=== PATIENT | male | born 1960 | race Caucasian/White ===

== ENCOUNTER 2020-08-12 09:08 | Inpatient (IN) | payer SELFPAY ==
[2020-08-12] MEDS ORDERED: ACETAMINOPHEN 325 MG TABLET PO ONE (11:11)
--- NOTE | 2020-08-12 11:19 | ER Document Report ---
ED General - General Chief Complaint: Flu Symptoms Stated Complaint: BACK PAIN/SHORTNESS OF BREATH Time Seen by Provider: 08/12/20 10:06 - HPI Notes: Chief complaint: Back pain cough History of present illness: 59-year-old male 1 pack/day cigarette smoker for many years presents now with 1 month history of progressively worsening back pain seated with 15 pound weight loss and cough productive of some sputum. He denies hemoptysis. He denies any prior history of respiratory problems. He specifically denies any known history of TB or exposure to TB that he is aware of. Has not seen a doctor in many years and is not currently taking any medications. He has no known allergies. Patient says he drinks 4 to 6 beers per day. 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 Currently lives alone. - Related Data Allergies/Adverse Reactions: No Known Allergies Allergy (Verified 08/12/20 10:51) Past Medical History - General Information source: Patient - Social History Smoking Status: Current Every Day Smoker Family History: Reviewed & Not Pertinent - Past Medical History Cardiac Medical History: Reports: Hx Hypertension Surgical Hx: Negative Review of Systems - Review of Systems Notes: Constitutional: Negative for fever. Weight loss as per HPI. HENT: Negative for sore throat. Eyes: Negative for visual changes. Cardiovascular: Negative for chest pain. Respiratory: As per HPI. Gastrointestinal: Negative for abdominal pain, vomiting or diarrhea. Genitourinary: Negative for dysuria. Musculoskeletal: As per HPI. Skin: Negative for rash. Neurological: Negative for headaches, weakness or numbness. 10 point ROS negative except as marked above and in HPI. Physical Exam - Vital signs Vitals: Temp Pulse Resp BP Pulse Ox 98.1 F 119 H 18 128/80 H 100 08/12/20 09:21 08/12/20 09:21 08/12/20 09:21 08/12/20 09:21 08/12/20 09:21 Course - Re-evaluation Re-evalutation: 08/12/20 15:12 Patient has what appears to be a dense pneumonic infiltrate versus mass on plain film of the chest. We obtained a CT of the chest with IV contrast and this suggests a necrotizing pneumonia with central cavitation. 20,000 white count present. Patient is mildly dyspneic at rest but has normal O2 saturation by pulse oximeter at this time. Blood cultures have been drawn. Patient has received IV Rocephin and azithromycin. We spoke with Dr. Dumont from pulmonary who agrees to see the patient for consultation possible bronchoscopy if patient can be admitted by the hospitalist service. Patient has been accepted for admission by hospitalist service. Findings, clinical impression and plan of treatment have been discussed with patient/family. Understanding of current findings and recommendations has been acknowledged by them and there is agreement regarding disposition and follow-up. - Vital Signs Vital signs: Temp Pulse Resp BP Pulse Ox 98.1 F 119 H 33 H 141/95 H 84 L 08/12/20 09:21 08/12/20 09:21 08/12/20 14:06 08/12/20 13:03 08/12/20 14:06 - Laboratory Result Diagrams: 08/12/20 12:42 08/12/20 12:42 Laboratory results interpreted by me: 08/12/20 08/12/20 12:42 12:42 WBC 19.9 H Plt Count 488 H Lymph % (Auto) 8.5 L Absolute Neuts (auto) 17.0 H Seg Neutrophils % 85.4 H Sodium 133.8 L Chloride 93 L BUN 21 H Albumin 3.4 L - EKG Interpretation by Me Additional EKG results interpreted by me: 08/12/20 11:17 Twelve-lead EKG reviewed by me contemporaneously: 1000 hours Indication for study: Back pain Rhythm: Normal sinus Rate: 96 Intervals: Normal QRS axis: +[address]/T wave changes: None Right atrial abnormality present Comparison with prior tracing: None Interpretation: Right atrial abnormality Discharge - Discharge Clinical Impression: Necrotizing pneumonia right upper lobe Condition: Good Disposition: ADMITTED INPATIENT Admitting Provider: Kartik (Hospitalist) Unit Admitted: Medical Floor
--- NOTE | 2020-08-12 11:57 | RADIOLOGY REPORT (SQ) ---
EXAM DESCRIPTION: CHEST SINGLE VIEW IMAGES COMPLETED DATE/TIME: 08/12/2020 11:18 am REASON FOR STUDY: Dyspnea COMPARISON: None. EXAM PARAMETERS: NUMBER OF VIEWS: One view. TECHNIQUE: Single frontal radiographic view of the chest acquired. RADIATION DOSE: NA LIMITATIONS: None. FINDINGS: LUNGS AND PLEURA: Dense consolidation in the right upper lobe. Otherwise clear. No pleur al effusion. No pneumothorax. MEDIASTINUM AND HILAR STRUCTURES: No masses. Contour normal. HEART AND VASCULAR STRUCTURES: Heart normal in size. Normal vasculature. BONES: No acute findings. Degenerative changes in the spine. HARDWARE: None in the chest. OTHER: No other significant finding. IMPRESSION: DENSE CONSOLIDATION IN THE RIGHT UPPER LOBE LIKELY DUE TO PNEUMONIA. UNDERLYING MASS CA NNOT BE EXCLUDED. TECHNICAL DOCUMENTATION: JOB ID: [id number] 2010 [employer]- All Rights Reserved Reading location - IP/workstation name: [email or web address]
[2020-08-12] MEDS ORDERED: AZITHROMYCIN 250 MG TABLET PO ONE (12:12)
[2020-08-12] MEDS ORDERED: CEFTRIAXONE INJ 1000 MG VIAL IV ONE (12:12)
--- NOTE | 2020-08-12 13:02 | EKG REPORT ---
SEVERITY:- ABNORMAL ECG - SINUS RHYTHM RAA, : Confirmed by: Chris Sullivan MD 12-Aug-2020 13:01:11
[2020-08-12 13:19] LABS: ABSOLUTE BASOPHILS # (AUTO) 0.1 10^3/uL (0.0-0.2); ABSOLUTE EOSINOPHILS # (AUTO) 0.1 10^3/uL (0.0-0.6); ABSOLUTE LYMPHOCYTES (AUTO) 1.7 10^3/uL (0.5-4.7); ABSOLUTE MONOCYTES (AUTO) 1.1 10^3/uL (0.1-1.4); BASOPHILS % (AUTO) 0.3 % (0-2); EOSINOPHILS % (AUTO) 0.4 % (0-6); HEMOGLOBIN 13.9 g/dL (13.5-17.0); LYMPHOCYTES % (AUTO) 8.5 % (13-45); MEAN CORPUSCULAR HGB CONC 34.8 g/dL (32.0-36.0); MEAN CORPUSCULAR VOLUME 92 fl (80-97); MONOCYTES % (AUTO) 5.4 % (3-13); PLATELET COUNT 488 10^3/uL (150-450); RED BLOOD COUNT 4.35 10^6/uL (4.35-5.55); SEGMENTED NEUTROPHILS % (AUTO) 85.4 % (42-78); TOTAL CELLS COUNTED % (AUTO) 100 %; WHITE BLOOD COUNT 19.9 10^3/uL (4.0-10.5)
[2020-08-12 13:44] LABS: ALBUMIN 3.4 g/dL (3.5-5.0); ALKALINE PHOSPHATASE 92 U/L (38-126); ANION GAP 13 (5-19); ASPARTATE AMINO TRANSFERASE 48 U/L (17-59); BILIRUBIN,DIRECT 0.3 mg/dL (0.0-0.4); BILIRUBIN,TOTAL 0.8 mg/dL (0.2-1.3); BLOOD UREA NITROGEN 21 mg/dL (7-20); CALCIUM 9.4 mg/dL (8.4-10.2); CARBON DIOXIDE 28 mmol/L (22-30); CHLORIDE 93 mmol/L (98-107); GLUCOSE 100 mg/dL (75-110); POTASSIUM 4.9 mmol/L (3.6-5.0); TOTAL PROTEIN 7.5 g/dL (6.3-8.2)
[2020-08-12 13:46] LABS: ALCOHOL < 10 mg/dL (NONE DETECTED)
--- NOTE | 2020-08-12 14:22 | RADIOLOGY REPORT (SQ) ---
EXAM DESCRIPTION: CT CHEST WITH IMAGES COMPLETED DATE/TIME: 08/12/2020 2:07 pm REASON FOR STUDY: Right upper lobe mass COMPARISON: AP chest 08/12/2020 TECHNIQUE: CT scan of the chest performed using helical scanning technique with dynamic intravenous contrast injection. Images reviewed with lung, soft tissue and bone windows. Reconstructed coronal and sagittal MPR and MIP images reviewed. All images stored on PACS. All CT scanners at this facility use dose modulation, iterative reconstruction, and/or weight based d osing when appropriate to reduce radiation dose to as low as reasonably achievable (ALARA). [facility]: Dose Right [facility]: CareDose [facility]: Dose Right [facility]: Teradose 4D [facility]: AccountNow CONTRAST TYPE AND DOSE: contrast/concentration: Isovue 350.00 mmol/ml; Total Contrast Delivered: 60. 0 ml; Total Saline Delivered: 55.0 ml RENAL FUNCTION: Creatinine 0.7 RADIATION DOSE: CT Rad equipment meets quality standard of care and radiation dose reduction techniq ues were employed. CTDIvol: 5.3 mGy. DLP: 219 mGy-cm. . LIMITATIONS: None. FINDINGS: LUNGS AND PLEURA: Dense consolidation is present in the right upper lobe. Central cavitat ion of the infiltrate is present, best shown on axial image 18. Necrotizing pneumonia is suspected. On axial image 40, a 10 mm irregularly-shaped pleural-based nodule is present in the right lower lobe adjacent to old healed rib fractures. HILAR AND MEDIASTINAL STRUCTURES: 1.5 x 0.9 cm precarinal lymph node. HEART AND VASCULAR STRUCTURES: No thoracic aortic aneurysm or dissection. No central pulmonary embol i. No pericardial effusion or cardiomegaly. Very dense coronary arteries, question left-sided coron jermain stents. HARDWARE: None in the chest. UPPER ABDOMEN: No significant findings. Limited exam. THYROID AND OTHER SOFT TISSUES: No masses. No adenopathy. BONES: No significant finding. OTHER: No other significant finding. IMPRESSION: Necrotizing right upper lobe pneumonia with central cavity and fluid Probable 1 cm scar in the right lower lobe adjacent to old healed rib fractures TECHNICAL DOCUMENTATION: JOB ID: [id number] Quality ID # [id number]: Final reports with documentation of one or more dose reduction techniques (e.g., Au tomated exposure control, adjustment of the mA and/or kV according to patient size, use of iterative reconstruction technique) 2010 [employer]- All Rights Reserved Reading location - IP/workstation name: [email or web address]
[2020-08-12] MEDS ORDERED: ONDANSETRON 4 MG TAB.RAPDIS PO PRN (18:33)
[2020-08-12] MEDS ORDERED: ONDANSETRON HCL INJ/PF 4 MG/2 ML SDV IV PRN (18:33)
[2020-08-12] MEDS ORDERED: LORAZEPAM INJ 2 MG/1 ML VIAL IV PRN (18:41)
--- NOTE | 2020-08-12 18:49 | PDOC H&P ---
History of Present Illness Admission Date/PCP: 08/12/20 16:28 History of Present Illness: RAFAT AMOS III is a 59 year old male with no significant past medical history who presents with a 1 week history of progressive chills right-sided chest pain shortness of breath. Patient also states he has been losing weight with approximately 15 to 20 pounds lost in the past month. Patient states is never had this sensation before. 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 He states multiple other workers were also ill from this. He is a current smoker and drinks 4-6 beers per day last drink was yesterday. He states he is never gone through withdrawal. He also smokes marijuana intermittently. He denies any fevers or productive cough. He denies any COVID-19 exposures and denies any history of tuberculosis. He denies any history of GERD or aspiration. Pulmonology was consulted on admission for possible bronchoscopy. CT scan chest showed necrotizing pneumonia in right upper lobe. Past Medical History Cardiac Medical History: Reports: Hypertension EENT Medical History: Reports: Cataracts Psychiatric Medical History: Reports: Alcohol Dependency, Substance Abuse, Tobacco Dependency Past Surgical History Past Surgical History: Reports: Other - Cataract Social History Information Source: Patient, Emergency Med Personnel Lives with: Alone Smoking Status: Current Every Day Smoker Frequency of Alcohol Use: Heavy Hx Recreational Drug Use: Yes Drugs: Marijuana Hx Prescription Drug Abuse: No - Advance Directive Resuscitation Status: Full Code Surrogate healthcare decision maker:: Admitting diagnosis: Necrotizing pneumonia All aspects of code status discussed with patient/POA including cardioversion, chest compressions, and intubation and the patient/POA indicated they wish to be full code MPOA is designated as: Dulce Pitts Time spent: Greater than 16 minutes Family History Family History: Reviewed & Not Pertinent Parental Family History Reviewed: Yes Children Family History Reviewed: Yes Sibling(s) Family History Reviewed.: Yes Medication/Allergy Home Medications: No Home Medications 08/12/20 Allergies/Adverse Reactions: No Known Allergies Allergy (Verified 08/12/20 10:51) Review of Systems All systems: reviewed and no additional remarkable complaints except as stated - Review of systems per HPI otherwise negative Physical Exam Vital Signs: Temp Pulse Resp BP Pulse Ox 99.8 F 100 17 147/102 H 98 08/12/20 18:31 08/12/20 18:31 08/12/20 18:31 08/12/20 18:31 08/12/20 18:31 Intake & Output 08/11/20 08/12/20 08/13/20 06:59 06:59 06:59 Weight 54.2 kg Exam: General appearance: PRESENT: no acute distress, thin Head exam: PRESENT: atraumatic, normocephalic Eye exam: PRESENT: conjunctiva pink. ABSENT: scleral icterus Mouth exam: PRESENT: moist Respiratory exam: PRESENT: Faint rales right upper lobe ABSENT: rhonchi, wheezes Cardiovascular exam: PRESENT: RRR. ABSENT: diastolic murmur, rubs, systolic murmur GI/Abdominal exam: PRESENT: normal bowel sounds, soft. ABSENT: distended, guarding, mass, organolmegaly, rebound, tenderness Neurological exam: PRESENT: alert, awake, oriented to person, oriented to place, oriented to time, oriented to situation Psychiatric exam: PRESENT: appropriate affect, normal mood Skin exam: PRESENT: dry, intact, warm Results Laboratory Results: 08/12/20 12:42 08/12/20 12:42 08/12/20 08/12/20 12:42 12:42 WBC 19.9 H RBC 4.35 Hgb 13.9 Hct 40.0 MCV 92 MCH 32.0 MCHC 34.8 RDW 13.0 Plt Count 488 H Seg Neutrophils % 85.4 H Sodium 133.8 L Potassium 4.9 Chloride 93 L Carbon Dioxide 28 Anion Gap 13 BUN 21 H Creatinine 0.65 Est GFR ( Amer) > 60 Glucose 100 Calcium 9.4 Total Bilirubin 0.8 AST 48 Alkaline Phosphatase 92 Total Protein 7.5 Albumin 3.4 L Impressions: Chest X-Ray 08/12/20 10:44 IMPRESSION: DENSE CONSOLIDATION IN THE RIGHT UPPER LOBE LIKELY DUE TO PNEUMONIA. UNDERLYING MASS CANNOT BE EXCLUDED. Chest CT 08/12/20 11:12 IMPRESSION: Necrotizing right upper lobe pneumonia with central cavity and fluid Probable 1 cm scar in the right lower lobe adjacent to old healed rib fractures Assessment and Plan - Diagnosis (1) Necrotizing pneumonia Is this a current diagnosis for this admission?: Yes Plan: Approximately 1 week of progressive right-sided chest pain and chills, patient believes this is due to inhaling dust when working on a roof Pulmonology consulted for possible bronchoscopy Cefepime/azithromycin for broad coverage Rule out TB: QuantiFERON gold and AFB x3 Sputum culture Blood culture Duo nebs as needed Pulmonary hygiene HIV ordered (2) Cavitary lesion of lung Is this a current diagnosis for this admission?: Yes Plan: Unclear etiology Work-up as above (3) Tobacco abuse Is this a current diagnosis for this admission?: Yes Plan: Counseled on cessation Nicotine patch (4) Alcohol abuse Is this a current diagnosis for this admission?: Yes Plan: Counseled on cessation CIWA As needed Ativan Thiamine and vitamins (5) Polysubstance abuse Is this a current diagnosis for this admission?: Yes Plan: Counseled on cessation of alcohol, marijuana, tobacco UDS - Time Time Spent with patient: 35 or more minutes Smoking Cessation Education: 3 to 10 minutes Medications reviewed and adjusted accordingly: Yes Anticipated Discharge Disposition: Home, Self Care Anticipated Discharge Timeframe: within 72 hours - Inpatient Certification Based on my medical assessment, after consideration of the patient's comorbidities, presenting symptoms, or acuity I expect that the services needed warrant INPATIENT care.: Yes I certify that my determination is in accordance with my understanding of Medicare's requirements for reasonable and necessary INPATIENT services [42 CFR 412.3e].: Yes Medical Necessity: Significant Comorbidiites Make Outpatient Treatment Too Risky, Need Close Monitoring Due to Risk of Patient Decompensation, Need for IV Antibiotics, Risk of Complication if Not Cared For in Hospital, Risk of Diag nosis Which Will Require Inpatient Eval/Care/Monitoring
[2020-08-12] MEDS: ACETAMINOPHEN 325 MG TABLET PO PRN (21:36)
[2020-08-12] MEDS ORDERED: CEFEPIME 2 GM/D5W RTU 2 GM/50 ML RTUPB IV SCH (22:00)
[2020-08-12] MEDS: HEPARIN SOD (PORCINE) 5,000 UNIT/ML 1 ML VIAL SUBCUT SCH (23:22)
[2020-08-12] MEDS: THIAMINE HCL 100 MG TABLET PO SCH (23:22)
[2020-08-12] MEDS: NICOTINE 21 MG/24 HR PATCH.TD24 TD SCH (23:22)
[2020-08-12] MEDS: CEFEPIME HCL 2 GM in DEXTROSE 5%-WATER 50 ML IV SCH (23:23)
[2020-08-13] MEDS: PANTOPRAZOLE SODIUM 40 MG TABLET.DR PO SCH (05:29)
[2020-08-13] MEDS: HEPARIN SOD (PORCINE) 5,000 UNIT/ML 1 ML VIAL SUBCUT SCH ×3 (05:29→21:03)
[2020-08-13 07:29] LABS: ABSOLUTE BASOPHILS # (AUTO) 0.1 10^3/uL (0.0-0.2); ABSOLUTE LYMPHOCYTES (AUTO) 1.2 10^3/uL (0.5-4.7); ABSOLUTE MONOCYTES (AUTO) 1.1 10^3/uL (0.1-1.4); ABSOLUTE NEUT (AUTO) 14.6 10^3/uL (1.7-8.2); BASOPHILS % (AUTO) 0.3 % (0-2); EOSINOPHILS % (AUTO) 0.2 % (0-6); HEMATOCRIT 35.5 % (37.9-51.0); HEMOGLOBIN 12.6 g/dL (13.5-17.0); LYMPHOCYTES % (AUTO) 7.2 % (13-45); MEAN CORPUSCULAR HEMOGLOBIN 32.3 pg (27.0-33.4); MEAN CORPUSCULAR HGB CONC 35.5 g/dL (32.0-36.0); MEAN CORPUSCULAR VOLUME 91 fl (80-97); MONOCYTES % (AUTO) 6.3 % (3-13); PLATELET COUNT 424 10^3/uL (150-450); RED CELL DISTRIBUTION WIDTH 12.7 % (11.5-14.0); TOTAL CELLS COUNTED % (AUTO) 100 %
[2020-08-13 07:52] LABS: ANION GAP 15 (5-19); BLOOD UREA NITROGEN 14 mg/dL (7-20); CALCIUM 8.8 mg/dL (8.4-10.2); CARBON DIOXIDE 20 mmol/L (22-30); CHLORIDE 94 mmol/L (98-107); CHOLESTEROL 97.18 mg/dL (0-200); GLUCOSE 102 mg/dL (75-110); PHOSPHORUS 3.4 mg/dL (2.5-4.5); POTASSIUM 4.2 mmol/L (3.6-5.0); TRIGLYCERIDES 156 mg/dL (<150)
[2020-08-13 08:03] LABS: DIRECT LDL 40 mg/dL (<100)
[2020-08-13 08:36] LABS: VLDL CHOLESTEROL 31.2 mg/dL (10-31)
[2020-08-13] MEDS: DOCUSATE SODIUM 100 MG CAPSULE PO SCH (09:42)
[2020-08-13] MEDS: CEFEPIME HCL 2 GM in DEXTROSE 5%-WATER 50 ML IV SCH ×2 (09:42→21:04)
[2020-08-13] MEDS: THIAMINE HCL 100 MG TABLET PO SCH (09:42)
[2020-08-13] MEDS: MULTIVITAMIN TABLET PO SCH (09:42)
[2020-08-13] MEDS: NICOTINE 21 MG/24 HR PATCH.TD24 TD SCH (09:52)
[2020-08-13] MEDS ORDERED: AZITHROMYCIN INJ 500 MG VIAL IV SCH (10:00)
--- NOTE | 2020-08-13 10:39 | PDOC CONSULTATION ---
Consultation Consult Date: 08/13/20 Provider Consulted: ELOINA LAZCANO Consult reason:: Right upper lobe abnormality on CAT scan. History of Present Illness Admission Date/PCP: 08/12/20 16:28 History of Present Illness: RAFAT AMOS III is a 59 year old male This patient presents with approximately 6-week long history of weight loss, cough, dyspnea, chills and night sweats. He states that beginning approximately 6 to 8 weeks ago he began remodeling his house. This apparently involved getting into areas of his ceiling and attic he had not previously been into in a number of years. It apparently was a fairly marcelino environment. Subsequently both him and 2 of his friends who helped him became ill with various respiratory complaints. He ultimately presented to the emergency room with the above history and was found to have an abnormal chest x-ray and subsequent CT scan of the chest as well. This patient has a significant history of cigarette smoking smoking as much as 1 to 1-1/2 packs/day. He continued to smoke 1 week prior to admission. He has been smoking for approximately 40 years. He notes exposure to a number of dusts in the past but no discrete occupational exposures. There is no significant family history of pulmonary disease. Past Medical History Cardiac Medical History: Reports: Hypertension EENT Medical History: Reports: Cataracts Psychiatric Medical History: Reports: Alcohol Dependency, Substance Abuse, Tobacco Dependency Denies: Depression Past Surgical History Past Surgical History: Reports: Other - Cataract Social History Lives with: Alone Smoking Status: Current Every Day Smoker Cigarettes Packs Per Day: 1 Cigars Per Day: 0 Pipes Per Day: 0 Number of Years Smokin Last Time Smoked: 08/07/2020 Frequency of Alcohol Use: Heavy Hx Recreational Drug Use: Yes Drugs: Marijuana Hx Prescription Drug Abuse: No - Advance Directive Resuscitation Status: Full Code Family History Family History: Reviewed & Not Pertinent Parental Family History Reviewed: No Children Family History Reviewed: No Sibling(s) Family History Reviewed.: No Medication/Allergy Home Medications: No Home Medications 08/12/20 Allergies/Adverse Reactions: No Known Allergies Allergy (Verified 08/12/20 10:51) Physical Exam Vital Signs: Temp Pulse Resp BP Pulse Ox 99.9 F 111 H 20 138/85 H 93 08/13/20 08:50 08/13/20 08:29 08/13/20 08:29 08/13/20 08:29 08/13/20 08:29 Intake & Output 08/12/20 08/13/20 08/14/20 06:59 06:59 06:59 Intake Total 660 Balance 660 Weight 54.2 kg Results Laboratory Results: 08/13/20 07:06 08/13/20 07:06 08/12/20 08/12/20 08/13/20 12:42 12:42 07:06 WBC 19.9 H RBC 4.35 Hgb 13.9 Hct 40.0 MCV 92 MCH 32.0 MCHC 34.8 RDW 13.0 Plt Count 488 H Seg Neutrophils % 85.4 H Sodium 133.8 L 128.5 L Potassium 4.9 4.2 Chloride 93 L 94 L Carbon Dioxide 28 20 L Anion Gap 13 15 BUN 21 H 14 Creatinine 0.65 0.57 Est GFR ( Amer) > 60 > 60 Glucose 100 102 Calcium 9.4 8.8 Phosphorus 3.4 Magnesium 1.9 Total Bilirubin 0.8 AST 48 Alkaline Phosphatase 92 Total Protein 7.5 Albumin 3.4 L Triglycerides 156 H Cholesterol 97.18 LDL Cholesterol Direct 40 VLDL Cholesterol 31.2 H HDL Cholesterol 21 L 08/13/20 07:06 WBC 17.0 H RBC 3.90 L Hgb 12.6 L Hct 35.5 L MCV 91 MCH 32.3 MCHC 35.5 RDW 12.7 Plt Count 424 Seg Neutrophils % 86.0 H Sodium Potassium Chloride Carbon Dioxide Anion Gap BUN Creatinine Est GFR ( Amer) Glucose Calcium Phosphorus Magnesium Total Bilirubin AST Alkaline Phosphatase Total Protein Albumin Triglycerides Cholesterol LDL Cholesterol Direct VLDL Cholesterol HDL Cholesterol Impressions: Chest X-Ray 08/12/20 10:44 IMPRESSION: DENSE CONSOLIDATION IN THE RIGHT UPPER LOBE LIKELY DUE TO PNEUMONIA. UNDERLYING MASS CANNOT BE EXCLUDED. Chest CT 08/12/20 11:12 IMPRESSION: Necrotizing right upper lobe pneumonia with central cavity and fluid Probable 1 cm scar in the right lower lobe adjacent to old healed rib fractures Status: Image reviewed by me - I reviewed his hospitalization chest x-ray and CT scan. He indeed does have a dense infiltrative/masslike lesion involving the right upper lobe. There does appear to be a small area of central cavitation. There is not appear to be any obvious air-fluid levels. Assessment & Plan - Diagnosis (1) Cavitary lesion of lung Is this a current diagnosis for this admission?: Yes - Plan Summary Plan Summary: This patient presents with a 6-week history of cough, weight loss, chills and night sweats, and an abnormal CT scan of the chest. While is entirely possible that this all represents an evolving anaerobic lung infection from an earlier pneumonia, it is certainly possible this represents a more atypical situation. In particular because of the upper lobe nature of this there is always concern about acid-fast bacilli. This could be both typical and atypical mycobacterial infection. In addition this could be nocardia actinomyces or other fungal infection. Likewise this could all likely be a large necrotizing carcinoma. Or could represent a small endobronchial tumor with postobstructive inflammation and early cavitary lung formation. However it seems likely that infection and likely bacterial infection is at least playing some role in this patient's presentation. Therefore I think it is most appropriate to proceed with a course of intravenous antibiotics to see how much of this right upper lobe infiltrative process will resolve. I have added clindamycin to his current antibiotic regimen. We can certainly continue treatment and follow-up as an outpatient once his acute illness has resolved. For now I would follow his temperature trend, his white cell count, his response to therapy, and ultimately serial chest x-rays and CT scans of the chest. We will likely proceed with bronchoscopy at some point if this dense infiltrative possibly cavitary lesion does not completely resolve over time.
[2020-08-13] MEDS: IPRATROPIUM/ALBUTEROL 0.5-2.5 MG/3 ML AMPUL NEB PRN (10:51)
[2020-08-13] MEDS: AZITHROMYCIN 500 MG in DEXTROSE 5%-WATER 250 ML IV SCH (13:27)
[2020-08-13] MEDS: ACETAMINOPHEN 325 MG TABLET PO PRN ×2 (13:27→21:04)
--- NOTE | 2020-08-13 14:02 | PDOC PROGRESS REPORT ---
Subjective Subjective:: RAFAT AMOS III is a 59 year old male with no significant past medical history who presents with a 1 week history of progressive chills right-sided chest pain shortness of breath. Patient also states he has been losing weight with approximately 15 to 20 pounds lost in the past month. Patient states is never had this sensation before. 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 He states multiple other workers were also ill from this. He is a current smoker and drinks 4-6 beers per day last drink was yesterday. He states he is never gone through withdrawal. He also smokes marijuana intermittently. He denies any fevers or productive cough. He denies any COVID-19 exposures and denies any history of tuberculosis. He denies any history of GERD or aspiration. Pulmonology was consulted on admission for possible bronchoscopy. CT scan chest showed nec rotizing pneumonia in right upper lobe. 08/13/2020 Patient seems to be improved from yesterday and voices that he feels better. I discussed the case with Dr. Wise and pulmonology today and he stated he would like the patient to take antibiotics for a few days and then reassess for bronchoscopy needs. Patient in agreement with this plan. White blood cells lower. Patient is in a negative pressure room while we rule out TB given he has a cavitary lesion on CT scan. Patient denies ever having pneumonia in the past. HIV is negative. Reason For Visit: NECROTIZING PNEUMONIA Physical Exam Vital Signs: Temp Pulse Resp BP Pulse Ox 99.9 F 97 16 138/85 H 97 08/13/20 08:50 08/13/20 10:51 08/13/20 10:51 08/13/20 08:29 08/13/20 10:51 Intake & Output 08/12/20 08/13/20 08/14/20 06:59 06:59 06:59 Intake Total 660 Balance 660 Weight 54.2 kg Exam: General appearance: PRESENT: no acute distress, thin, seems better today Head exam: PRESENT: atraumatic, normocephalic Eye exam: PRESENT: conjunctiva pink. ABSENT: scleral icterus Mouth exam: PRESENT: moist Respiratory exam: PRESENT: Scant rales right upper lobe ABSENT: rhonchi, wheezes Cardiovascular exam: PRESENT: RRR. ABSENT: diastolic murmur, rubs, systolic murmur GI/Abdominal exam: PRESENT: normal bowel sounds, soft. ABSENT: distended, guarding, mass, organolmegaly, rebound, tenderness Neurological exam: PRESENT: alert, awake, oriented to person, oriented to place, oriented to time, oriented to situation Psychiatric exam: PRESENT: appropriate affect, normal mood Skin exam: PRESENT: dry, intact, warm Results Laboratory Results: 08/13/20 07:06 08/13/20 07:06 08/13/20 08/13/20 07:06 07:06 WBC 17.0 H RBC 3.90 L Hgb 12.6 L Hct 35.5 L MCV 91 MCH 32.3 MCHC 35.5 RDW 12.7 Plt Count 424 Seg Neutrophils % 86.0 H Sodium 128.5 L Potassium 4.2 Chloride 94 L Carbon Dioxide 20 L Anion Gap 15 BUN 14 Creatinine 0.57 Est GFR ( Amer) > 60 Glucose 102 Calcium 8.8 Phosphorus 3.4 Magnesium 1.9 Triglycerides 156 H Cholesterol 97.18 LDL Cholesterol Direct 40 VLDL Cholesterol 31.2 H HDL Cholesterol 21 L Impressions: Chest X-Ray 08/12/20 10:44 IMPRESSION: DENSE CONSOLIDATION IN THE RIGHT UPPER LOBE LIKELY DUE TO PNEUMONIA. UNDERLYING MASS CANNOT BE EXCLUDED. Chest CT 08/12/20 11:12 IMPRESSION: Necrotizing right upper lobe pneumonia with central cavity and fluid Probable 1 cm scar in the right lower lobe adjacent to old healed rib fractures Assessment and Plan - Diagnosis (1) Necrotizing pneumonia Is this a current diagnosis for this admission?: Yes Plan: Approximately 1 week of progressive right-sided chest pain and chills, patient believes this is due to inhaling dust when working on a roof Pulmonology consulted: Discussed with Dr. Wise, after being given a few days of antibiotics, can reassess for possible bronchoscopy Cefepime/azithromycin for broad coverage Rule out TB: QuantiFERON gold and AFB x3 Sputum culture Blood culture Duo nebs as needed Pulmonary hygiene HIV negative (2) Cavitary lesion of lung Is this a current diagnosis for this admission?: Yes Plan: Unclear etiology Work-up as above (3) Tobacco abuse Is this a current diagnosis for this admission?: Yes (4) Alcohol abuse Is this a current diagnosis for this admission?: Yes Plan: Counseled on cessation CIWA As needed Ativan Thiamine and vitamins (5) Polysubstance abuse Is this a current diagnosis for this admission?: Yes - Time Time Spent with patient: 25-34 minutes Medications reviewed and adjusted accordingly: Yes Anticipated Discharge Disposition: Home, Self Care Anticipated Discharge Timeframe: within 72 hours - Inpatient Certification Based on my medical assessment, after consideration of the patient's comorbidities, presenting symptoms, or acuity I expect that the services needed warrant INPATIENT care.: Yes I certify that my determination is in accordance with my understanding of Medicare's requirements for reasonable and necessary INPATIENT services [42 CFR 412.3e].: Yes Medical Necessity: Significant Comorbidiites Make Outpatient Treatment Too Risky, Need Close Monitoring Due to Risk of Patient Decompensation, Need for IV Antibiotics, Risk of Complication if Not Cared For in Hospital, Risk of Diagnosis Which Will Require Inpatient Eval/Care/Monitoring
[2020-08-13] MEDS: CLINDAMYCIN 600 MG/D5W RTU 600 MG/50 ML RTUPB IV SCH ×2 (16:07→21:04)
--- NOTE | 2020-08-14 00:13 | CDI QUERY ---
CDI Query CDI Review: We are seeking further clarification of documentation to reflect the severity of illness of your patient. Per H&P: Alcohol abuse Is this a current diagnosis for this admission?: Yes Plan: Counseled on cessation CIWA As needed Ativan Thiamine and vitamins Polysubstance abuse Is this a current diagnosis for this admission?: Yes Based on your medical judgement, can you further clarify in the Progress Notes: Alcohol abuse with dependence Alcohol abuse without dependence Unable to determine Other Polysubstance abuse with dependence Polysubstance without dependence Unable to determine Other Thank you for your consideration. MARK Ardon RN Clinical Binder Cutter Physician Advisor [email or web address]
[2020-08-14] MEDS: PANTOPRAZOLE SODIUM 40 MG TABLET.DR PO SCH (06:17)
[2020-08-14] MEDS: CLINDAMYCIN 600 MG/D5W RTU 600 MG/50 ML RTUPB IV SCH ×3 (06:18→22:36)
[2020-08-14] MEDS: HEPARIN SOD (PORCINE) 5,000 UNIT/ML 1 ML VIAL SUBCUT SCH ×3 (06:18→22:37)
[2020-08-14] MEDS: ACETAMINOPHEN 325 MG TABLET PO PRN ×3 (06:23→22:38)
[2020-08-14 06:26] LABS: ABSOLUTE BASOPHILS # (AUTO) 0.1 10^3/uL (0.0-0.2); ABSOLUTE EOSINOPHILS # (AUTO) 0.1 10^3/uL (0.0-0.6); ABSOLUTE LYMPHOCYTES (AUTO) 1.5 10^3/uL (0.5-4.7); ABSOLUTE MONOCYTES (AUTO) 0.9 10^3/uL (0.1-1.4); ABSOLUTE NEUT (AUTO) 12.6 10^3/uL (1.7-8.2); BASOPHILS % (AUTO) 0.3 % (0-2); EOSINOPHILS % (AUTO) 0.7 % (0-6); HEMATOCRIT 35.1 % (37.9-51.0); HEMOGLOBIN 12.3 g/dL (13.5-17.0); LYMPHOCYTES % (AUTO) 9.9 % (13-45); MEAN CORPUSCULAR HEMOGLOBIN 31.9 pg (27.0-33.4); MEAN CORPUSCULAR VOLUME 91 fl (80-97); MONOCYTES % (AUTO) 5.9 % (3-13); PLATELET COUNT 423 10^3/uL (150-450); RED BLOOD COUNT 3.85 10^6/uL (4.35-5.55); RED CELL DISTRIBUTION WIDTH 12.6 % (11.5-14.0); SEGMENTED NEUTROPHILS % (AUTO) 83.2 % (42-78); TOTAL CELLS COUNTED % (AUTO) 100 %; WHITE BLOOD COUNT 15.1 10^3/uL (4.0-10.5)
[2020-08-14 06:50] LABS: ANION GAP 12 (5-19); BLOOD UREA NITROGEN 14 mg/dL (7-20); CALCIUM 8.8 mg/dL (8.4-10.2); CARBON DIOXIDE 22 mmol/L (22-30); CHLORIDE 95 mmol/L (98-107); GLUCOSE 92 mg/dL (75-110); POTASSIUM 4.5 mmol/L (3.6-5.0)
[2020-08-14] MEDS: NICOTINE 21 MG/24 HR PATCH.TD24 TD SCH (09:30)
[2020-08-14] MEDS: MULTIVITAMIN TABLET PO SCH (09:51)
[2020-08-14] MEDS: THIAMINE HCL 100 MG TABLET PO SCH (09:51)
[2020-08-14] MEDS: CEFEPIME HCL 2 GM in DEXTROSE 5%-WATER 50 ML IV SCH ×2 (09:51→22:36)
[2020-08-14] MEDS: DOCUSATE SODIUM 100 MG CAPSULE PO SCH (09:51)
[2020-08-14] MEDS: IPRATROPIUM/ALBUTEROL 0.5-2.5 MG/3 ML AMPUL NEB PRN (10:02)
[2020-08-14] MEDS: AZITHROMYCIN 500 MG in DEXTROSE 5%-WATER 250 ML IV SCH (10:19)
--- NOTE | 2020-08-14 18:51 | PDOC PROGRESS REPORT ---
Subjective Subjective:: RAFAT AMOS III is a 59 year old male with no significant past medical history who presents with a 1 week history of progressive chills right-sided chest pain shortness of breath. Patient also states he has been losing weight with approximately 15 to 20 pounds lost in the past month. Patient states is never had this sensation before. 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 He states multiple other workers were also ill from this. He is a current smoker and drinks 4-6 beers per day last drink was yesterday. He states he is never gone through withdrawal. He also smokes marijuana intermittently. He denies any fevers or productive cough. He denies any COVID-19 exposures and denies any history of tuberculosis. He denies any history of GERD or aspiration. Pulmonology was consulted on admission for possible bronchoscopy. CT scan chest showed nec rotizing pneumonia in right upper lobe. 08/13/2020 Patient seems to be improved from yesterday and voices that he feels better. I discussed the case with Dr. Wise and pulmonology today and he stated he would like the patient to take antibiotics for a few days and then reassess for bronchoscopy needs. Patient in agreement with this plan. White blood cells lower. Patient is in a negative pressure room while we rule out TB given he has a cavitary lesion on CT scan. Patient denies ever having pneumonia in the past. HIV is negative. 08/14/2020 Patient seems to be doing better today than yesterday. His lungs are clearing up on exam. He is not seem to be experiencing significant withdrawal symptoms. He has been quinacrine gold are pending. Respiratory culture showing GPC in pairs on Gram stain. Pulmonology following. Patient has no new complaints. Reason For Visit: NECROTIZING PNEUMONIA Physical Exam Vital Signs: Temp Pulse Resp BP Pulse Ox 98.2 F 85 18 118/75 97 08/14/20 17:21 08/14/20 17:21 08/14/20 17:21 08/14/20 17:21 08/14/20 17:21 Intake & Output 08/13/20 08/14/20 08/15/20 06:59 06:59 06:59 Intake Total 660 1190 590 Output Total 335 Balance 660 855 590 Weight 54.2 kg 51.7 kg 51.7 kg Exam: General appearance: PRESENT: no acute distress, thin, states he feels well Head exam: PRESENT: atraumatic, normocephalic Eye exam: PRESENT: conjunctiva pink. ABSENT: scleral icterus Mouth exam: PRESENT: moist Respiratory exam: PRESENT: Scant rales right upper lobe ABSENT: rhonchi, wheezes Cardiovascular exam: PRESENT: RRR. ABSENT: diastolic murmur, rubs, systolic murmur GI/Abdominal exam: PRESENT: normal bowel sounds, soft. ABSENT: distended, guarding, mass, organolmegaly, rebound, tenderness Neurological exam: PRESENT: alert, awake, oriented to person, oriented to place, oriented to time, oriented to situation Psychiatric exam: PRESENT: appropriate affect, normal mood Skin exam: PRESENT: dry, intact, warm Results Laboratory Results: 08/14/20 05:56 08/14/20 05:56 08/14/20 08/14/20 05:56 05:56 WBC 15.1 H RBC 3.85 L Hgb 12.3 L Hct 35.1 L MCV 91 MCH 31.9 MCHC 35.0 RDW 12.6 Plt Count 423 Seg Neutrophils % 83.2 H Sodium 129.1 L Potassium 4.5 Chloride 95 L Carbon Dioxide 22 Anion Gap 12 BUN 14 Creatinine 0.55 Est GFR ( Amer) > 60 Glucose 92 Calcium 8.8 Impressions: Chest X-Ray 08/12/20 10:44 IMPRESSION: DENSE CONSOLIDATION IN THE RIGHT UPPER LOBE LIKELY DUE TO PNEUMONIA. UNDERLYING MASS CANNOT BE EXCLUDED. Chest CT 08/12/20 11:12 IMPRESSION: Necrotizing right upper lobe pneumonia with central cavity and fluid Probable 1 cm scar in the right lower lobe adjacent to old healed rib fractures Assessment and Plan - Diagnosis (1) Necrotizing pneumonia Is this a current diagnosis for this admission?: Yes Plan: Approximately 1 week of progressive right-sided chest pain and chills, patient believes this is due to inhaling dust when working on a roof Pulmonology consulted: Discussed with Dr. Wise, after being given a few days of antibiotics, can reassess for possible bronchoscopy Cefepime/azithromycin for broad coverage Rule out TB: QuantiFERON gold and AFB x3 Sputum culture pending, Gram stain growing GPC in pairs Blood culture Duo nebs as needed Pulmonary hygiene HIV negative (2) Cavitary lesion of lung Is this a current diagnosis for this admission?: Yes Plan: Unclear etiology Work-up as above (3) Tobacco abuse Is this a current diagnosis for this admission?: Yes (4) Alcohol abuse Is this a current diagnosis for this admission?: Yes Plan: Counseled on cessation CIWA As needed Ativan Thiamine and vitamins (5) Polysubstance abuse Is this a current diagnosis for this admission?: Yes (6) Alcohol dependence Qualifiers: Substance use status: in withdrawal Complication of substance-induced condition: uncomplicated Qualified Code(s): F10.230 - Alcohol dependence with withdrawal, uncomplicated Is this a current diagnosis for this admission?: Yes Plan: CIWA - Time Time Spent with patient: 25-34 minutes Medications reviewed and adjusted accordingly: Yes Anticipated Discharge Disposition: Home, Self Care Anticipated Discharge Timeframe: within 72 hours - Inpatient Certification Based on my medical assessment, after consideration of the patient's comorbidities, presenting symptoms, or acuity I expect that the services needed warrant INPATIENT care.: Yes I certify that my determination is in accordance with my understanding of Medicare's requirements for reasonable and necessary INPATIENT services [42 CFR 412.3e].: Yes Medical Necessity: Significant Comorbidiites Make Outpatient Treatment Too Risky, Need Close Monitoring Due to Risk of Patient Decompensation, Need for IV Antibiotics, Risk of Complication if Not Cared For in Hospital, Risk of Diagnosis Which Will Require Inpatient Eval/Care/Monitoring
[2020-08-15] MEDS: CLINDAMYCIN 600 MG/D5W RTU 600 MG/50 ML RTUPB IV SCH ×2 (06:09→14:21)
[2020-08-15] MEDS: PANTOPRAZOLE SODIUM 40 MG TABLET.DR PO SCH (06:09)
[2020-08-15] MEDS: HEPARIN SOD (PORCINE) 5,000 UNIT/ML 1 ML VIAL SUBCUT SCH ×3 (06:09→21:40)
[2020-08-15] MEDS: ACETAMINOPHEN 325 MG TABLET PO PRN ×2 (06:16→18:35)
[2020-08-15 06:51] LABS: ABSOLUTE BASOPHILS # (AUTO) 0.1 10^3/uL (0.0-0.2); ABSOLUTE EOSINOPHILS # (AUTO) 0.2 10^3/uL (0.0-0.6); ABSOLUTE LYMPHOCYTES (AUTO) 1.8 10^3/uL (0.5-4.7); ABSOLUTE MONOCYTES (AUTO) 0.9 10^3/uL (0.1-1.4); BASOPHILS % (AUTO) 0.7 % (0-2); HEMATOCRIT 36.2 % (37.9-51.0); HEMOGLOBIN 12.5 g/dL (13.5-17.0); LYMPHOCYTES % (AUTO) 14.8 % (13-45); MEAN CORPUSCULAR HEMOGLOBIN 31.6 pg (27.0-33.4); MEAN CORPUSCULAR HGB CONC 34.6 g/dL (32.0-36.0); MEAN CORPUSCULAR VOLUME 91 fl (80-97); MONOCYTES % (AUTO) 7.3 % (3-13); PLATELET COUNT 465 10^3/uL (150-450); RED BLOOD COUNT 3.97 10^6/uL (4.35-5.55); RED CELL DISTRIBUTION WIDTH 12.8 % (11.5-14.0); SEGMENTED NEUTROPHILS % (AUTO) 75.2 % (42-78); TOTAL CELLS COUNTED % (AUTO) 100 %
[2020-08-15 07:22] LABS: ANION GAP 12 (5-19); BLOOD UREA NITROGEN 13 mg/dL (7-20); CALCIUM 8.9 mg/dL (8.4-10.2); CARBON DIOXIDE 24 mmol/L (22-30); CHLORIDE 97 mmol/L (98-107); GLUCOSE 93 mg/dL (75-110); POTASSIUM 4.4 mmol/L (3.6-5.0)
[2020-08-15] MEDS: DOCUSATE SODIUM 100 MG CAPSULE PO SCH (09:33)
[2020-08-15] MEDS: NICOTINE 21 MG/24 HR PATCH.TD24 TD SCH (09:33)
[2020-08-15] MEDS: THIAMINE HCL 100 MG TABLET PO SCH (10:17)
[2020-08-15] MEDS: MULTIVITAMIN TABLET PO SCH (10:17)
[2020-08-15] MEDS: CEFEPIME HCL 2 GM in DEXTROSE 5%-WATER 50 ML IV SCH ×2 (10:17→21:40)
[2020-08-15] MEDS: AZITHROMYCIN 500 MG in DEXTROSE 5%-WATER 250 ML IV SCH (11:11)
--- NOTE | 2020-08-15 14:54 | PDOC PROGRESS REPORT ---
Subjective Progress Note for:: 08/15/20 Subjective:: No adverse events overnight. No new complaints. Vital signs been stable. He is ambulating in the room independently. He is on room air. Eating and drinking without difficulty. Reason For Visit: NECROTIZING PNEUMONIA Physical Exam Vital Signs: Temp Pulse Resp BP Pulse Ox 98.1 F 95 17 119/85 99 08/15/20 11:56 08/15/20 11:56 08/15/20 11:56 08/15/20 11:56 08/15/20 11:56 Intake & Output 08/14/20 08/15/20 08/16/20 06:59 06:59 06:59 Intake Total 1190 1280 300 Output Total 335 Balance 855 1280 300 Weight 51.7 kg 51.6 kg General appearance: PRESENT: no acute distress, thin, states he feels well Head exam: PRESENT: atraumatic, normocephalic Eye exam: PRESENT: conjunctiva pink. ABSENT: scleral icterus Mouth exam: PRESENT: moist Respiratory exam: PRESENT: Scant rales right upper lobe ABSENT: rhonchi, wheezes Cardiovascular exam: PRESENT: RRR. ABSENT: diastolic murmur, rubs, systolic murmur GI/Abdominal exam: PRESENT: normal bowel sounds, soft. ABSENT: distended, guarding, mass, organolmegaly, rebound, tenderness Neurological exam: PRESENT: alert, awake, oriented to person, oriented to place, oriented to time, oriented to situation Psychiatric exam: PRESENT: appropriate affect, normal mood Skin exam: PRESENT: dry, intact, warm Results Laboratory Results: 08/15/20 06:34 08/15/20 06:34 08/15/20 08/15/20 06:34 06:34 WBC 12.0 H RBC 3.97 L Hgb 12.5 L Hct 36.2 L MCV 91 MCH 31.6 MCHC 34.6 RDW 12.8 Plt Count 465 H Seg Neutrophils % 75.2 Sodium 132.8 L Potassium 4.4 Chloride 97 L Carbon Dioxide 24 Anion Gap 12 BUN 13 Creatinine 0.51 L Est GFR ( Amer) > 60 Glucose 93 Calcium 8.9 08/13/20 09:50 Sputum Gram Stain - Final Impressions: Chest X-Ray 08/12/20 10:44 IMPRESSION: DENSE CONSOLIDATION IN THE RIGHT UPPER LOBE LIKELY DUE TO PNEUMONIA. UNDERLYING MASS CANNOT BE EXCLUDED. Chest CT 08/12/20 11:12 IMPRESSION: Necrotizing right upper lobe pneumonia with central cavity and fluid Probable 1 cm scar in the right lower lobe adjacent to old healed rib fractures Assessment and Plan - Diagnosis (1) Necrotizing pneumonia Is this a current diagnosis for this admission?: Yes (2) Cavitary lesion of lung Is this a current diagnosis for this admission?: Yes (3) Alcohol dependence Qualifiers: Substance use status: in withdrawal Complication of substance-induced condition: uncomplicated Qualified Code(s): F10.230 - Alcohol dependence with withdrawal, uncomplicated Is this a current diagnosis for this admission?: Yes (4) Polysubstance abuse Is this a current diagnosis for this admission?: Yes (5) Tobacco abuse Is this a current diagnosis for this admission?: Yes - Plan Summary Summary: Seems to be responding to antibiotics. White blood cell count is coming down. Clinically he appears pretty well. First AFB smear was negative. The other 2 are pending. QuantiFERON gold pending. We will continue current antibiotic therapy. If he is ruled out for TB, will repeat CT scan to compare with the initial study and assess for interval change. If it has improved, will arrange outpatient follow-up with pulmonology. If it has shown no change, will follow- up with pulmonology to see if he needs further inpatient evaluation. He shows no signs of alcohol withdrawal at this time. - Time Time Spent with patient: 15-24 minutes Anticipated Discharge Disposition: Home, Self Care Anticipated Discharge Timeframe: within 72 hours
[2020-08-15] MEDS: CLINDAMYCIN HCL 150 MG CAPSULE PO SCH (21:41)
[2020-08-16] MEDS: HEPARIN SOD (PORCINE) 5,000 UNIT/ML 1 ML VIAL SUBCUT SCH ×3 (05:02→21:36)
[2020-08-16] MEDS: ACETAMINOPHEN 325 MG TABLET PO PRN ×3 (05:02→22:44)
[2020-08-16] MEDS: PANTOPRAZOLE SODIUM 40 MG TABLET.DR PO SCH (05:02)
[2020-08-16] MEDS: CLINDAMYCIN HCL 150 MG CAPSULE PO SCH ×3 (05:02→21:36)
[2020-08-16 06:21] LABS: ABSOLUTE BASOPHILS # (AUTO) 0.2 10^3/uL (0.0-0.2); ABSOLUTE EOSINOPHILS # (AUTO) 0.5 10^3/uL (0.0-0.6); ABSOLUTE LYMPHOCYTES (AUTO) 1.6 10^3/uL (0.5-4.7); ABSOLUTE MONOCYTES (AUTO) 0.9 10^3/uL (0.1-1.4); ABSOLUTE NEUT (AUTO) 9.8 10^3/uL (1.7-8.2); BASOPHILS % (AUTO) 1.2 % (0-2); EOSINOPHILS % (AUTO) 3.7 % (0-6); HEMOGLOBIN 11.4 g/dL (13.5-17.0); LYMPHOCYTES % (AUTO) 12.7 % (13-45); MEAN CORPUSCULAR HEMOGLOBIN 31.6 pg (27.0-33.4); MEAN CORPUSCULAR HGB CONC 34.5 g/dL (32.0-36.0); MEAN CORPUSCULAR VOLUME 92 fl (80-97); PLATELET COUNT 491 10^3/uL (150-450); RED BLOOD COUNT 3.61 10^6/uL (4.35-5.55); RED CELL DISTRIBUTION WIDTH 12.6 % (11.5-14.0); SEGMENTED NEUTROPHILS % (AUTO) 75.4 % (42-78); TOTAL CELLS COUNTED % (AUTO) 100 %
[2020-08-16 06:40] LABS: ANION GAP 8 (5-19); BLOOD UREA NITROGEN 13 mg/dL (7-20); CALCIUM 8.6 mg/dL (8.4-10.2); CARBON DIOXIDE 24 mmol/L (22-30); CHLORIDE 98 mmol/L (98-107); GLUCOSE 94 mg/dL (75-110); POTASSIUM 4.2 mmol/L (3.6-5.0)
[2020-08-16] MEDS: DOCUSATE SODIUM 100 MG CAPSULE PO SCH (11:17)
[2020-08-16] MEDS: THIAMINE HCL 100 MG TABLET PO SCH (11:18)
[2020-08-16] MEDS: CEFEPIME HCL 2 GM in DEXTROSE 5%-WATER 50 ML IV SCH ×2 (11:18→21:36)
[2020-08-16] MEDS: AZITHROMYCIN 250 MG TABLET PO SCH (11:18)
[2020-08-16] MEDS: MULTIVITAMIN TABLET PO SCH (11:18)
[2020-08-16] MEDS: NICOTINE 21 MG/24 HR PATCH.TD24 TD SCH (11:19)
--- NOTE | 2020-08-16 12:23 | PDOC PROGRESS REPORT ---
Subjective Progress Note for:: 08/16/20 Subjective:: No adverse events overnight. No new complaints. Vital signs been stable. He is ambulating in the room independently. He is on room air. Eating and drinking without difficulty. He says he feels pretty good. Reason For Visit: NECROTIZING PNEUMONIA Physical Exam Vital Signs: Temp Pulse Resp BP Pulse Ox 97.7 F 63 18 128/74 H 100 08/16/20 11:26 08/16/20 11:26 08/16/20 11:26 08/16/20 11:26 08/16/20 11:26 Intake & Output 08/15/20 08/16/20 08/17/20 06:59 06:59 05:59 Intake Total 1280 1070 Output Total 500 Balance 1280 570 Weight 51.6 kg 52 kg General appearance: PRESENT: no acute distress, thin, states he feels well Head exam: PRESENT: atraumatic, normocephalic Eye exam: PRESENT: conjunctiva pink. ABSENT: scleral icterus Mouth exam: PRESENT: moist Respiratory exam: PRESENT: Scant rales right upper lobe ABSENT: rhonchi, wheezes Cardiovascular exam: PRESENT: RRR. ABSENT: diastolic murmur, rubs, systolic murmur GI/Abdominal exam: PRESENT: normal bowel sounds, soft. ABSENT: distended, guarding, mass, organolmegaly, rebound, tenderness Neurological exam: PRESENT: alert, awake, oriented to person, oriented to place, oriented to time, oriented to situation Psychiatric exam: PRESENT: appropriate affect, normal mood Skin exam: PRESENT: dry, intact, warm Results Laboratory Results: 08/16/20 06:06 08/16/20 06:06 08/16/20 08/16/20 06:06 06:06 WBC 13.0 H RBC 3.61 L Hgb 11.4 L Hct 33.0 L MCV 92 MCH 31.6 MCHC 34.5 RDW 12.6 Plt Count 491 H Seg Neutrophils % 75.4 Sodium 129.7 L Potassium 4.2 Chloride 98 Carbon Dioxide 24 Anion Gap 8 BUN 13 Creatinine 0.49 L Est GFR ( Amer) > 60 Glucose 94 Calcium 8.6 08/13/20 09:50 Sputum AFB Smear Concentration - Final 08/13/20 09:50 Sputum Acid Fast Bacilli Smear - Final 08/13/20 09:50 Sputum Gram Stain - Final 08/13/20 09:50 Sputum Sputum Culture - Final Group F Beta Streptococcus Normal Gracie Impressions: Chest X-Ray 08/12/20 10:44 IMPRESSION: DENSE CONSOLIDATION IN THE RIGHT UPPER LOBE LIKELY DUE TO PNEUMONI A. UNDERLYING MASS CANNOT BE EXCLUDED. Chest CT 08/12/20 11:12 IMPRESSION: Necrotizing right upper lobe pneumonia with central cavity and fluid Probable 1 cm scar in the right lower lobe adjacent to old healed rib fractures Assessment and Plan - Diagnosis (1) Necrotizing pneumonia Is this a current diagnosis for this admission?: Yes (2) Cavitary lesion of lung Is this a current diagnosis for this admission?: Yes (3) Alcohol dependence Qualifiers: Substance use status: in withdrawal Complication of substance-induced condition: uncomplicated Qualified Code(s): F10.230 - Alcohol dependence with withdrawal, uncomplicated Is this a current diagnosis for this admission?: Yes (4) Polysubstance abuse Is this a current diagnosis for this admission?: Yes (5) Tobacco abuse Is this a current diagnosis for this admission?: Yes - Plan Summary Summary: Seems to be responding to antibiotics. White blood cell count is coming down. Clinically he appears pretty well. First AFB smear was negative. The other 2 are pending, the one collected on the has not resulted for some reason. QuantiFERON gold pending. We will continue current antibiotic therapy. If he is ruled out for TB, will repeat CT scan to compare with the initial study and assess for interval change. If it has improved, will arrange outpatient follow- up with pulmonology. If it has shown no change, will follow-up with pulmonology to see if he needs further inpatient evaluation. He shows no signs of alcohol withdrawal at this time. - Time Time Spent with patient: 15-24 minutes Anticipated Discharge Disposition: Home, Self Care Anticipated Discharge Timeframe: within 72 hours
[2020-08-17] MEDS: PANTOPRAZOLE SODIUM 40 MG TABLET.DR PO SCH (05:51)
[2020-08-17] MEDS: CLINDAMYCIN HCL 150 MG CAPSULE PO SCH ×3 (05:52→21:04)
[2020-08-17] MEDS: HEPARIN SOD (PORCINE) 5,000 UNIT/ML 1 ML VIAL SUBCUT SCH ×3 (05:52→21:04)
[2020-08-17] MEDS: ACETAMINOPHEN 325 MG TABLET PO PRN ×3 (05:55→20:13)
[2020-08-17] MEDS: DOCUSATE SODIUM 100 MG CAPSULE PO SCH (11:10)
[2020-08-17] MEDS: NICOTINE 21 MG/24 HR PATCH.TD24 TD SCH (11:10)
[2020-08-17] MEDS: AZITHROMYCIN 250 MG TABLET PO SCH (11:11)
[2020-08-17] MEDS: MULTIVITAMIN TABLET PO SCH (11:11)
[2020-08-17] MEDS: THIAMINE HCL 100 MG TABLET PO SCH (11:11)
[2020-08-17] MEDS: CEFEPIME HCL 2 GM in DEXTROSE 5%-WATER 50 ML IV SCH ×2 (11:12→21:04)
--- NOTE | 2020-08-17 15:54 | PDOC PROGRESS REPORT ---
Subjective Progress Note for:: 08/17/20 Subjective:: No adverse events overnight. No new complaints. Vital signs been stable. He is ambulating in the room independently. He is on room air. Eating and drinking without difficulty. He says he feels pretty good. Clinical condition is unchanged. Reason For Visit: NECROTIZING PNEUMONIA Physical Exam Vital Signs: Temp Pulse Resp BP Pulse Ox 97.5 F 73 16 116/73 99 08/17/20 11:50 08/17/20 14:00 08/17/20 11:50 08/17/20 11:50 08/17/20 11:50 Intake & Output 08/16/20 08/17/20 08/18/20 07:59 06:59 06:59 Intake Total Output Total Balance Weight General appearance: PRESENT: no acute distress, thin, states he feels well Head exam: PRESENT: atraumatic, normocephalic Eye exam: PRESENT: conjunctiva pink. ABSENT: scleral icterus Mouth exam: PRESENT: moist Respiratory exam: PRESENT: Scant rales right upper lobe ABSENT: rhonchi, wheezes Cardiovascular exam: PRESENT: RRR. ABSENT: diastolic murmur, rubs, systolic murmur GI/Abdominal exam: PRESENT: normal bowel sounds, soft. ABSENT: distended, guarding, mass, organolmegaly, rebound, tenderness Neurological exam: PRESENT: alert, awake, oriented to person, oriented to place, oriented to time, oriented to situation Psychiatric exam: PRESENT: appropriate affect, normal mood Skin exam: PRESENT: dry, intact, warm Results Laboratory Results: 08/16/20 06:06 08/16/20 06:06 08/12/20 15:09 Blood Blood Culture - Final NO GROWTH IN 5 DAYS 08/12/20 12:42 Blood Blood Culture - Final NO GROWTH IN 5 DAYS Impressions: Chest X-Ray 08/12/20 10:44 IMPRESSION: DENSE CONSOLIDATION IN THE RIGHT UPPER LOBE LIKELY DUE TO PNEUMONIA. UNDERLYING MASS CANNOT BE EXCLUDED. Chest CT 08/12/20 11:12 IMPRESSION: Necrotizing right upper lobe pneumonia with central cavity and fluid Probable 1 cm scar in the right lower lobe adjacent to old healed rib fractures Assessment and Plan - Diagnosis (1) Necrotizing pneumonia Is this a current diagnosis for this admission?: Yes (2) Cavitary lesion of lung Is this a current diagnosis for this admission?: Yes (3) Alcohol dependence Qualifiers: Substance use status: in withdrawal Complication of substance-induced condition: uncomplicated Qualified Code(s): F10.230 - Alcohol dependence with withdrawal, uncomplicated Is this a current diagnosis for this admission?: Yes (4) Polysubstance abuse Is this a current diagnosis for this admission?: Yes (5) Tobacco abuse Is this a current diagnosis for this admission?: Yes - Plan Summary Summary: Clinically he appears pretty well. First AFB smear was negative. The other 2 are pending, the one collected on the has not resulted for some reason. QuantiFERON gold pending. We will continue current antibiotic therapy. If he is ruled out for TB, will repeat CT scan to compare with the initial study and assess for interval change. If it has improved, will arrange outpatient follow- up with pulmonology. If it has shown no change, will follow-up with pulmonology to see if he needs further inpatient evaluation. He shows no signs of alcohol withdrawal at this time. - Time Anticipated Discharge Disposition: Home, Self Care Anticipated Discharge Timeframe: within 72 hours
[2020-08-18] MEDS: PANTOPRAZOLE SODIUM 40 MG TABLET.DR PO SCH (05:31)
[2020-08-18] MEDS: CLINDAMYCIN HCL 150 MG CAPSULE PO SCH (05:31)
[2020-08-18] MEDS: HEPARIN SOD (PORCINE) 5,000 UNIT/ML 1 ML VIAL SUBCUT SCH (05:31)
[2020-08-18] MEDS: DOCUSATE SODIUM 100 MG CAPSULE PO SCH (09:07)
[2020-08-18] MEDS: NICOTINE 21 MG/24 HR PATCH.TD24 TD SCH (09:07)
[2020-08-18] MEDS: CEFEPIME HCL 2 GM in DEXTROSE 5%-WATER 50 ML IV SCH (09:13)
[2020-08-18] MEDS: THIAMINE HCL 100 MG TABLET PO SCH (09:13)
[2020-08-18] MEDS: MULTIVITAMIN TABLET PO SCH (09:13)
[2020-08-18] MEDS: AZITHROMYCIN 250 MG TABLET PO SCH (09:57)
--- NOTE | 2020-08-18 13:42 | RADIOLOGY REPORT (SQ) ---
EXAM DESCRIPTION: CT CHEST WITH IMAGES COMPLETED DATE/TIME: 08/18/2020 11:55 am REASON FOR STUDY: pneumonia COMPARISON: 08/12/2020 TECHNIQUE: CT scan of the chest performed using helical scanning technique with dynamic intravenous contrast injection. Images reviewed with lung, soft tissue and bone windows. Reconstructed coronal and sagittal MPR and MIP images reviewed. All images stored on PACS. All CT scanners at this facility use dose modulation, iterative reconstruction, and/or weight based d osing when appropriate to reduce radiation dose to as low as reasonably achievable (ALARA). [facility]: Dose Right [facility]: CareDose [facility]: Dose Right [facility]: Teradose 4D [facility]: Sportody CONTRAST TYPE AND DOSE: contrast/concentration: Isovue 350.00 mmol/ml; Total Contrast Delivered: 79. 9 ml; Total Saline Delivered: 35.9 ml RENAL FUNCTION: Creatinine 0.49 RADIATION DOSE: CT Rad equipment meets quality standard of care and radiation dose reduction techniq ues were employed. CTDIvol: 5.1 mGy. DLP: 212 mGy-cm. . LIMITATIONS: None. FINDINGS: LUNGS AND PLEURA: Persistent dense consolidation within the right upper lobe with areas of central cavitation, grossly stable compared to prior. Patchy additional areas of ground-glass atten uation throughout the right upper lobe, likely postobstructive atelectatic change or additional pneum onia. Unchanged 1 cm scar within the peripheral right lower lobe (series 4, image 38). No significa nt pleural effusion. No pneumothorax. HILAR AND MEDIASTINAL STRUCTURES: Similar appearance of the right suprahilar and paratracheal adenopa thy. For reference, largest pretracheal node measures approximately 15 x 11 mm (series 3, image 23). HEART AND VASCULAR STRUCTURES: Scattered coronary atherosclerosis. No aneurysm or dissection. No ce ntral pulmonary emboli. No pericardial effusion. HARDWARE: None in the chest. UPPER ABDOMEN: No significant findings. Limited exam. THYROID AND OTHER SOFT TISSUES: No masses. No adenopathy. BONES: No significant finding. OTHER: No other significant finding. IMPRESSION: 1. Grossly stable appearance of the right upper lobe cavitary consolidation suggestive of cavitary pneumonia. Recommend follow-up to resolution to ensure no underlying mass lesion. Stabl e pretracheal adenopathy. 2. Mild new right upper lobe ground-glass opacities, likely additional postobstructive atelectasis/p neumonia. TECHNICAL DOCUMENTATION: JOB ID: [id number] Quality ID # [id number]: Final reports with documentation of one or more dose reduction techniques (e.g., Au tomated exposure control, adjustment of the mA and/or kV according to patient size, use of iterative reconstruction technique) 2010 [employer]- All Rights Reserved Reading location - IP/workstation name: [facility]
[2020-08-18 15:39] VITALS: BP 132/77
--- NOTE | 2020-08-18 15:42 | PDOC DISCHARGE SUMMARY ---
Impression - Admit/DC Date/PCP Admission Date/Primary Care Provider: 08/12/20 16:28 Discharge Date: 08/18/20 - Discharge Diagnosis (1) Necrotizing pneumonia Is this a current diagnosis for this admission?: Yes (2) Cavitary lesion of lung Is this a current diagnosis for this admission?: Yes (3) Alcohol dependence Is this a current diagnosis for this admission?: Yes (4) Polysubstance abuse Is this a current diagnosis for this admission?: Yes (5) Tobacco abuse Is this a current diagnosis for this admission?: Yes - Assessment Summary: Clinically he appears pretty well. First AFB smear was negative. The other 2 are pending, the one collected on the has not resulted for some reason. QuantiFERON gold pending. We will continue current antibiotic therapy. If he is ruled out for TB, will repeat CT scan to compare with the initial study and assess for interval change. If it has improved, will arrange outpatient follow- up with pulmonology. If it has shown no change, will follow-up with pulmonology to see if he needs further inpatient evaluation. He shows no signs of alcohol withdrawal at this time. - Additional Information Resuscitation Status: Full Code Discharge Diet: Regular Discharge Activity: Activity As Tolerated, Balance Activity w/Rest Referrals: [facility] [Provider Group] - 08/21/20 11:00 am ELOINA WIES MD [ACTIVE PROVISIONAL STAFF] - (7-10 days) Prescriptions: Levofloxacin [Levaquin 750 mg Tablet] 750 mg PO DAILY #14 tab Home Medications: Levofloxacin [Levaquin 750 mg Tablet] 750 mg PO DAILY #14 tab 08/18/20 History of Present Illiness History of Present Illness: RAFAT AMOS III is a 59 year old male with no significant past medical history who presents with a 1 week history of progressive chills right-sided chest pain shortness of breath. Patient also states he has been losing weight with approximately 15 to 20 pounds lost in the past month. Patient states is never had this sensation before. 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 He states multiple other workers were also ill from this. He is a current smoker and drinks 4-6 beers per day last drink was yesterday. He states he is never gone through withdrawal. He also smokes marijuana intermittently. He denies any fevers or productive cough. He denies any COVID-19 exposures and denies any history of tuberculosis. He denies any history of GERD or aspiration. Pulmonology was consulted on admission for possible bronchoscopy. CT scan chest showed necrotizing pneumonia in right upper lobe. Hospital Course Hospital Course: We empirically had him on antibiotics and get a pulmonology consultation. Plan was to rule him out for TB, keep him on empiric antibiotics, monitor his cultures and follow his clinical course. He had a negative QuantiFERON gold and we had a negative AFB smear but were unable to collect more than 1 because he could not produce enough sputum for the other 2. Clinically he appeared very stable. He was ambulating on room air with normal vital signs and his white blood cell count came down. We repeated the CT scan and it was unchanged essentially. He has a right upper lobe cavitary pneumonia. Dr. Wise recommended 14 days of levofloxacin and will see the patient in his office next week. His labs and examination were reassuring and he was discharged in stable condition. He was strongly encouraged to quit smoking. He never showed any signs of alcohol withdrawal. Physical Exam Vital Signs: Temp Pulse Resp BP Pulse Ox 97.5 F 75 17 132/77 H 99 08/18/20 15:37 08/18/20 15:37 08/18/20 15:37 08/18/20 15:37 08/18/20 15:37 Intake & Output 08/17/20 08/18/20 08/19/20 06:59 06:59 06:59 Intake Total 1317 Balance 1317 Weight 53.6 kg General appearance: PRESENT: no acute distress, thin, states he feels well Head exam: PRESENT: atraumatic, normocephalic Eye exam: PRESENT: conjunctiva pink. ABSENT: scleral icterus Mouth exam: PRESENT: moist Respiratory exam: PRESENT: Scant rales right upper lobe ABSENT: rhonchi, wheezes Cardiovascular exam: PRESENT: RRR. ABSENT: diastolic murmur, rubs, systolic murmur GI/Abdominal exam: PRESENT: normal bowel sounds, soft. ABSENT: distended, guarding, mass, organolmegaly, rebound, tenderness Neurological exam: PRESENT: alert, awake, oriented to person, oriented to place, oriented to time, oriented to situation Psychiatric exam: PRESENT: appropriate affect, normal mood Skin exam: PRESENT: dry, intact, warm Results Laboratory Results: WBC 13.0 10^3/uL (4.0-10.5) H 08/16/20 06:06 RBC 3.61 10^6/uL (4.35-5.55) L 08/16/20 06:06 Hgb 11.4 g/dL (13.5-17.0) L 08/16/20 06:06 Hct 33.0 % (37.9-51.0) L 08/16/20 06:06 MCV 92 fl (80-97) 08/16/20 06:06 MCH 31.6 pg (27.0-33.4) 08/16/20 06:06 MCHC 34.5 g/dL (32.0-36.0) 08/16/20 06:06 RDW 12.6 % (11.5-14.0) 08/16/20 06:06 Plt Count 491 10^3/uL (150-450) H 08/16/20 06:06 Lymph % (Auto) 12.7 % (13-45) L 08/16/20 06:06 [place] % (Auto) 7.0 % (3-13) 08/16/20 06:06 Eos % (Auto) 3.7 % (0-6) 08/16/20 06:06 Baso % (Auto) 1.2 % (0-2) 08/16/20 06:06 Absolute Neuts (auto) 9.8 10^3/uL (1.7-8.2) H 08/16/20 06:06 Absolute Lymphs (auto) 1.6 10^3/uL (0.5-4.7) 08/16/20 06:06 Absolute Monos (auto) 0.9 10^3/uL (0.1-1.4) 08/16/20 06:06 Absolute Eos (auto) 0.5 10^3/uL (0.0-0.6) 08/16/20 06:06 Absolute Basos (auto) 0.2 10^3/uL (0.0-0.2) 08/16/20 06:06 Seg Neutrophils % 75.4 % (42-78) 08/16/20 06:06 Sodium 129.7 mmol/L (137-145) L 08/16/20 06:06 Potassium 4.2 mmol/L (3.6-5.0) 08/16/20 06:06 Chloride 98 mmol/L (98-107) 08/16/20 06:06 Carbon Dioxide 24 mmol/L (22-30) 08/16/20 06:06 Anion Gap 8 (5-19) 08/16/20 06:06 BUN 13 mg/dL (7-20) 08/16/20 06:06 Creatinine 0.49 mg/dL (0.52-1.25) L 08/16/20 06:06 Est GFR ( Amer) > 60 (>60) 08/16/20 06:06 Est GFR (MDRD) Non-Af > 60 (>60) 08/16/20 06:06 Glucose 94 mg/dL (75-110) 08/16/20 06:06 Calcium 8.6 mg/dL (8.4-10.2) 08/16/20 06:06 Phosphorus 3.4 mg/dL (2.5-4.5) 08/13/20 07:06 Magnesium 1.9 mg/dL (1.6-2.3) 08/13/20 07:06 Total Bilirubin 0.8 mg/dL (0.2-1.3) 08/12/20 12:42 Direct Bilirubin 0.3 mg/dL (0.0-0.4) 08/12/20 12:42 Neonat Total Bilirubin Not Reportable 08/12/20 12:42 Neonat Direct Bilirubin Not Reportable 08/12/20 12:42 Neonat Indirect Bili Not Reportable 08/12/20 12:42 AST 48 U/L (17-59) 08/12/20 12:42 ALT 27 U/L (<50) 08/12/20 12:42 Alkaline Phosphatase 92 U/L (38-126) 08/12/20 12:42 Total Protein 7.5 g/dL (6.3-8.2) 08/12/20 12:42 Albumin 3.4 g/dL (3.5-5.0) L 08/12/20 12:42 Triglycerides 156 mg/dL (<150) H 08/13/20 07:06 Cholesterol 97.18 mg/dL (0-200) 08/13/20 07:06 LDL Cholesterol Direct 40 mg/dL (<100) 08/13/20 07:06 VLDL Cholesterol 31.2 mg/dL (10-31) H 08/13/20 07:06 HDL Cholesterol 21 mg/dL (>40) L 08/13/20 07:06 Serum Alcohol < 10 mg/dL (NONE DETECTED) 08/12/20 12:42 HIV 1&2 Antibody NEGATIVE (NEGATIVE) 08/13/20 07:06 TB Test (QFT) Gold Plus Negative (Negative) 08/13/20 07:06 TB Test (QFT) Nil 0.02 IU/mL (.) 08/13/20 07:06 TB Test (QFT) Mitogen 1.23 IU/mL (.) 08/13/20 07:06 TB Test (QFT) Ag 1 0.03 IU/mL (.) 08/13/20 07:06 TB Test (QFT) Ag 2 0.02 IU/mL (.) 08/13/20 07:06 TB Test (QFT) Criteria Comment (.) 08/13/20 07:06 AFB Smear NO ACID FAST BACILLI (NO AFB SEEN) 08/13/20 09:50 Impressions: Chest X-Ray 08/12/20 10:44 IMPRESSION: DENSE CONSOLIDATION IN THE RIGHT UPPER LOBE LIKELY DUE TO PNEUMONIA. UNDERLYING MASS CANNOT BE EXCLUDED. Chest CT 08/12/20 11:12 IMPRESSION: Necrotizing right upper lobe pneumonia with central cavity and fluid Probable 1 cm scar in the right lower lobe adjacent to old healed rib fractures Chest CT 08/18/20 00:00 IMPRESSION: 1. Grossly stable appearance of the right upper lobe cavitary consolidation suggestive of cavitary pneumonia. Recommend follow-up to resolution to ensure no underlying mass lesion. Stable pretracheal adenopathy. 2. Mild new right upper lobe ground-glass opacities, likely additional postobstructive atelectasis/pneumonia. Plan Time Spent: Greater than 30 Minutes Stroke Is this a Stroke Patient?: No Acute Heart Failure Is this a Heart Failure Patient?: No
== END 2020-08-18 16:46 | disposition home or self-care (01) | DRG 179 ==
LOC: ER 09:08 → EH 16:28 → 4W 18:30 → 3S 08-13 01:07
PROVIDERS: ADMIT Internal Medicine; ATTEND Family Medicine
DX: J85.0 Gangrene and necrosis of lung (principal); F17.210 Nicotine dependence, cigarettes, uncomplicated; F10.20 Alcohol dependence, uncomplicated; F12.90 Cannabis use, unspecified, uncomplicated; F19.10 Other psychoactive substance abuse, uncomplicated
CPT/HCPCS: 36415; 71045; 71260; 80048; 80053; 80061; 80307; 83735; 84100; 85025; 86480; 86701; 87015; 87040; 87070; 87077; 87116; 87205; 87206; 93005; 93010; 96365; 99285; J0456; J0692; J0696; J1644; J3490; J7060